=== PATIENT | female | born 1960 | race Caucasian/White ===

== ENCOUNTER 2023-08-28 12:38 | Observation (INO) | payer OTHER ==
[2023-08-28 14:12] LABS: HEMATOCRIT 39.3 % (32.4-45.2); HEMOGLOBIN 13.6 G/dL (10.7-15.3); MCH 32.1 pg (25.7-33.7); MCHC 34.6 g/dl (32.0-36.0); MEAN CELL VOLUME 92.6 fl (80-96); MEAN PLT VOLUME 8.1 fl (7.5-11.1); PLATELET COUNT 213.7 10^3/uL (134-434); RBC 4.24 10^6/uL (3.60-5.2); RDW 13.9 % (11.6-15.6); WHITE BLOOD COUNT 4.3 10^3/uL (4.0-10.8)
[2023-08-28 14:27] LABS: INR 0.98 (0.83-1.09); PROTHROMBIN TIME (PATIENT) 11.4 SEC (9.7-13.0)
[2023-08-28 14:30] LABS: ACTIVATED PTT 29.7 SECONDS (25.2-36.5)
[2023-08-28 14:35] LABS: PLATELET ESTIMATE ADEQUATE
[2023-08-28 14:39] LABS: ALBUMIN 4.5 g/dl (3.4-5.0); BILIRUBIN,TOTAL 0.5 mg/dl (0.2-1); CALCIUM 9.8 mg/dl (8.5-10.1); CREATININE 0.8 mg/dl (0.6-1.3); MAGNESIUM 2.2 mg/dL (1.8-2.4); POTASSIUM 4.8 mmol/L (3.5-5.1); TOT PROT 6.9 g/dl (6.4-8.2)
[2023-08-28] MEDS ORDERED: IBUPROFEN 600 MG TABLET (FP) PO ONE (17:59)
[2023-08-28] MEDS: IBUPROFEN 600 MG TABLET (FP) PO ONE (18:01)
[2023-08-28] MEDS: SODIUM CHLORIDE 1,000 ML IV SCH (23:17)
[2023-08-28] MEDS: MELATONIN 5 MG TABLETS PO PRN (23:17)
[2023-08-28] MEDS: ROSUVASTATIN CA 20 MG TABLET PO SCH (23:17)
[2023-08-29] MEDS ORDERED: ACETAMINOPHEN 325 MG TABLET (FP) PO PRN (00:31)
[2023-08-29 01:08] VITALS: BMI 24.0
[2023-08-29 06:54] VITALS: TEMP 97.8
[2023-08-29 08:57] LABS: HEMATOCRIT 37.3 % (32.4-45.2); HEMOGLOBIN 13.1 G/dL (10.7-15.3); MCH 32.6 pg (25.7-33.7); MCHC 35.1 g/dl (32.0-36.0); MEAN CELL VOLUME 92.9 fl (80-96); MEAN PLT VOLUME 8.2 fl (7.5-11.1); PLATELET COUNT 192.5 10^3/uL (134-434); RBC 4.02 10^6/uL (3.60-5.2); RDW 13.9 % (11.6-15.6); WHITE BLOOD COUNT 3.9 10^3/uL (4.0-10.8)
[2023-08-29 09:01] LABS: CALCIUM 9.2 mg/dl (8.5-10.1); CREATININE 0.8 mg/dl (0.6-1.3); PHOSPHOROUS 4.5 (2.5-4.9); POTASSIUM 4.3 mmol/L (3.5-5.1)
[2023-08-29 09:41] VITALS: PULSE 73
[2023-08-29] MEDS: ENOXAPARIN NA (PORCINE) 40 MG/0.4 ML DISP.SYRIN SQ SCH (09:49)
[2023-08-29 13:26] VITALS: BP 110/63; RESP 14
== END 2023-08-29 14:35 | disposition home or self-care (01) ==
LOC: FER 12:38 → UNDOADMOB 16:51 → FM/S 16:51
PROVIDERS: ADMIT Internal Medicine; ATTEND Nurse Practitioner Family
PROC: 3E023GC Introduction of Other Therapeutic Substance into Muscle, Percutaneous Approach (ICD-10-PCS; principal; 2023-08-28)
PROC: 3E0337Z Introduction of Electrolytic and Water Balance Substance into Peripheral Vein, Percutaneous Approach (ICD-10-PCS; 2023-08-28)
DX: R55 Syncope and collapse (principal); I49.8 Other specified cardiac arrhythmias; R01.1 Cardiac murmur, unspecified; E78.5 Hyperlipidemia, unspecified; R06.02 Shortness of breath; M54.9 Dorsalgia, unspecified; R51.9 Headache, unspecified; Z88.5 Allergy status to narcotic agent
CPT/HCPCS: 36415; 70450-TC; 71046-TC-FY; 80048; 80053; 83036; 83735; 83880; 84100; 84439; 84443; 84484; 85025; 85027; 85379; 85610; 85730; 86850; 86900; 86901; 93005; 97116-GP; 97161-GP; 99285-25; G0378

== ENCOUNTER 2024-02-07 14:29 | Emergency (ER) | payer OTHER ==
[2024-02-07 14:53] VITALS: BP 114/81; PULSE 56; RESP 15; TEMP 97.4; BMI 23.2
[2024-02-07] MEDS ORDERED: ACETAMINOPHEN 325 MG TABLET (FP) ONE (14:57)
[2024-02-07] MEDS: ACETAMINOPHEN 325 MG TABLET (FP) PO ONE (15:00)
== END 2024-02-07 15:34 | disposition home or self-care (01) ==
LOC: SUPCPDRO 14:29 → FER 14:29
DX: S60.221A Contusion of right hand, initial encounter (principal); V91 Other injury due to accident to watercraft
CPT/HCPCS: 73130-TC-RT-FY; 99283-25